=== PATIENT | male | born 1990 | race African-American/Black ===

== ENCOUNTER 2021-06-17 12:34 | Emergency (ER) | payer SELFPAY ==
[2021-06-17 12:48] VITALS: BP 156/86; PULSE 79; RESP 16; TEMP 36.5; O2SAT 100
--- NOTE | 2021-06-17 13:27 | ED.GENADULT ---
HPI - General Adult General Chief complaint: Urogenital-Male Stated complaint: STD Test Time Seen by Provider: 06/17/21 13:20 Source: patient and RN notes reviewed Mode of arrival: ambulatory Limitations: no limitations History of Present Illness HPI narrative: 30 year old male who presents to [facility] with complaints of greater than 2 week duration of white penile discharge with burning with urination and dark colored urination. Patient denies any blood in urine or any penile lesions Patient states that he has had un protected intercourse prior to symptoms starting. Patient states that he has not been able to come to get help for his symptoms because he has been home quarantining for covid and has recovered from having the virus with some lingering headache symptoms. Patient denies any fevrs, chills or sweats, denies any abdominal discomfort or any CVA tendernss. MD complaint: possible STD Quality: burning Relieving factors: none Exacerbating factors: none Associated symptoms: denies other symptoms Treatments prior to arrival: none Related Data Allergies Allergy/AdvReac Type Severity Reaction Status Date / Time No Known Allergies Allergy Verified 06/17/21 12:58 Review of Systems Review of Systems: CONSTITUTIONAL: Denies fever, chills, or sweats. EYES: Denies visual changes, redness, or discharge. ENT: Denies rhinorrhea, congestion, sore throat, or otalgia. CARDIOVASCULAR: Denies chest pain, palpitations, or edema. RESPIRATORY: Denies cough or dyspnea. GASTROINTESTINAL: Denies abdominal pain, nausea, vomiting, or diarrhea. GENITOURINARY: Positive dysuria no hematuria, white penile drainage SKIN: Denies rash or itching. MUSCULOSKELETAL: Denies back pain, joint pain, or myalgia. NEUROLOGIC: Denies headache, numbness, or weakness. PSYCHIATRIC: Denies anxiety or depression. All systems reviewed & are unremarkable except as noted in HPI and below PMFSH Past Medical History Medical History (Updated 06/21/21 @ 11:01 by Rubina Del Cid NP) Dislocation of left shoulder joint Fracture, finger, open surgical repair No significant medical problems Open left femoral fracture ORIF repair Family History Family History (Updated 06/21/21 @ 11:01 by Rubina Del Cid NP) Grandparent Asthma Sibling Asthma Mother Diabetes mellitus Cerebrovascular accident Social History Social History (Updated 06/21/21 @ 11:00 by Rubina Del Cid NP) Smoking status: Current some day smoker Alcohol intake: current Alcohol use details: social Substance use: never Living arrangements: with family Gender identity (if verbalized by the patient): Male Comments At time of signature, agree with nursing past medical, surgical, social and family history. There is no relevant family history pertinent to the presenting complaint Exam Narrative: GENERAL: Well-appearing, well-nourished, and in no acute distress. HEAD: Normocephalic, atraumatic. EYES: PERRLA and EOMI. ENT: Nares clear, no rhinorrhea or epistaxis. Mucous membranes moist, TM's normal with good light reflex no drainage noted, throat pink with no lesions or exudates, no tonsil swelling. NECK: Supple.no lymphadenopathy CHEST: Clear to auscultation. No respiratory distress.SAO2 100% on room air HEART: Regular rate and rhythm. No murmur heard. Normal peripheral pulses. ABDOMEN: Soft, nontender, nondistended, normal active bowel sounds.No CVA tenderness, reports penile drainage after having unprotected sexual intercourse. EXTREMITIES: Normal range of motion. No edema. SKIN: Warm, dry, no rash. NEURO: No focal deficits. Alert and oriented x3. Course Vital Signs Vital signs: Vital Signs Temperature 36.5 C 06/17/21 12:48 Pulse Rate 79 06/17/21 12:48 Respiratory Rate 16 06/17/21 12:48 Blood Pressure 156/86 H 06/17/21 12:48 Pulse Oximetry 100 06/17/21 12:48 Temperature 36.5 C 06/17/21 12:48 Pulse Rate 79 06/17/21 12:48 Respiratory Rate
[2021-06-17] MEDS: cefTRIAXone 1 GM VIAL IM (14:00)
[2021-06-17] MEDS: LIDOCAINE HCL 1% LOCAL INJ 20 ML VIAL 2.1 ML IM (14:00)
== END 2021-06-17 14:28 | disposition home or self-care (01) ==
PROVIDERS: Emergency Provider Registered Nurse
DX: R36.9 Urethral discharge, unspecified (principal); F17.210 Nicotine dependence, cigarettes, uncomplicated
CPT/HCPCS: 81003; 87491; 87591; 87661; 96372; 99203; G0463; J0696